=== PATIENT | female | born 1930 | race Caucasian/White ===

== ENCOUNTER 2018-09-20 19:56 | Inpatient (IN) ==
--- NOTE | 2018-09-20 20:43 | Emergency Department Note ---
General Adult HPI - General Chief complaint: Cold/Flu Symptoms Stated complaint: "upset stomach" Time Seen by Provider: 09/20/18 20:07 Source: patient, family, EMS Mode of arrival: EMS Limitations: no limitations - History of Present Illness HPI Narrative: 87-year-old female in ED with family present. Patient was transferred from [facility] via [facility] ambulance due to abdominal pain with nausea since 3 AM. They were unable to draw blood from patient to run further diagnostics, and no CT scanner available. Patient's alert and oriented and upon arrival states she has no more abdominal pain, she is only hungry. Family explains patient has had nausea since 3 AM decreased appetite and concerns on her lower extremity edema. Patient was recently diagnosed with A. fib within the last 2 months and placed on Xarelto. Patient does have a history of COPD, hypothyroidism, hypertension, CHF, chronic kidney disease stage III, inguinal hernia right side. Onset (ago): day(s) (1) Location: abdomen Radiation: non-radiation Consistency: now resolved Treatments Prior to Arrival: other (500 mL lactated Ringer's ODT ondansetron) - Related Data Home Medications Medication Instructions Recorded Confirmed Acetaminophen [Tylenol Extra 500 mg PO Q8HP PRN 09/21/18 09/21/18 Strength] Albuterol Sulfate [Ventolin] 2 puff INH Q4HP PRN 09/21/18 09/21/18 Beclomethasone Dipropionate [Qvar 2 puff INH BID 09/21/18 09/21/18 40] Calcium Carbonate [Tums] 1,000 mg PO BID 09/21/18 09/21/18 Cephalexin [Keflex] 500 mg PO TID 09/21/18 09/21/18 Furosemide [Lasix] 20 mg PO QAM 09/21/18 09/21/18 Levothyroxine [Synthroid] 88 mcg PO QAMAC 09/21/18 09/21/18 Lisinopril [Zestril] 20 mg PO BID 09/21/18 09/21/18 Rivaroxaban [Xarelto] 15 mg PO QHS 09/21/18 09/21/18 Spironolactone [Aldactone] 25 mg PO DAILY@1200 09/21/18 09/21/18 amLODIPine [Norvasc] 5 mg PO HS 09/21/18 09/21/18 Allergies Allergy/AdvReac Type Severity Reaction Status Date / Time codeine Allergy Verified 09/20/18 19:59 Review of Systems All systems ED: reviewed and negative except as stated. Past Medical History - Past Medical History Medical history: Reports: arthritis, atrial fibrillation, CHF, COPD, coronary artery disease, hypertension, hypothyroidism, renal disease (stage III) - Social History smoking status: Never smoker Physical Exam Limitations: no limitations General appearance: alert, in no apparent distress (patient does appear frail with skin tenting) Head: atraumatic, normocephalic, normal inspection Eye: Present: normal appearance, PERRL. Absent: conjunctival injection ENT: normal exam, normal oropharynx, mucous membranes moist, TM's normal bilaterally, normal external ear exam Neck: Present: normal inspection. Absent: tenderness, lymphadenopathy Chest: Present: normal inspection, symmetric chest wall rise. Absent: tenderness Respiratory: Present: normal lung sounds bilaterally. Absent: respiratory distress, rales/crackles, wheezes Cardiovascular: Present: irregular rhythm. Absent: systolic murmur, diastolic murmur Abdominal: Present: soft, distention (slight LRQ/LLQ), normal bowel sounds. Absent: tenderness, guarding, rebound, rigidity Extremities: Present: normal inspection, pedal edema (+1) Back: Present: normal inspection Neurological: Present: alert, oriented X3 Psychiatric: Present: normal affect, normal mood. Absent: depressed, agitated, anxious Skin: Present: warm, dry, intact, normal color. Absent: cyanosis, diaphoresis, erythema Course Vital Signs Temperature 97.3 F 09/20/18 19:59 Pulse Rate 72 09/20/18 19:59 Respiratory Rate 17 09/20/18 19:59 Blood Pressure 156/85 09/20/18 19:59 Pulse Oximetry (%) 97 09/20/18 19:59 Temperature 97.9 F 09/21/18 07:38 Pulse Rate 83 09/21/18 03:10 Respiratory Rate 16 09/21/18 07:38 Blood Pressure 155/68 09/21/18 07:38 Pulse Oximetry (%) 95 09/21/18 07:38 Medical Decision Making - MDM Narrative Medical decision making narrative: Patient's lab work fairly unremarkable WBC 9.4, RBC 3.87, BUN 28, creatinine 1.0. At end of this provider's shift consulted with to continue patient care and on patient history and recent diagnostics along with recently ordered ct for possible bowel obstruction. Notified family of change of providers. - Medical Records Medical records reviewed: Yes I reviewed the patient's medical records. [facility] did EKG and was able to compare to an older recent EKG. WOOD FUEL PELLETIZER advised no changes sinus arrhythmia. Reviewed ED notes along with ambulance notes. - Lab Data Lab results reviewed: Yes I reviewed the patient's lab results. Result diagrams: 09/21/18 07:45 09/21/18 08:01 Lab Results 09/20/18 09/20/18 09/20/18 Range/Units 20:20 20:20 22:25 WBC 9.4 (4.5-11.0) K/mcL RBC 3.87 L (4.00-5.20) M/mcL Hgb 12.9 (12.0-15.0) g/dL Hct 38.3 (36.0-48.0) % MCV 99.0 (80.0-100.0) fL MCH 33.3 (26.0-34.0) pg MCHC 33.7 (31.0-36.0) g/dL RDW 14.9 H (11.5-14.5) % Plt Count 368 (140-440) K/mcL MPV 6.9 L (7.4-10.4) fL Gran % 80.7 H (38.0-78.0) % Lymph % (Auto) 11.9 L (15.5-49.0) % Archer % (Auto) 7.1 (1.0-12.0) % Eos % (Auto) 0.2 (0.0-7.0) % Baso % (Auto) 0.1 (0.0-2.0) % Gran # 7.6 (1.8-8.0) K/mcL Lymph # (Auto) 1.1 L (1.5-4.8) K/mcL Archer # (Auto) 0.7 (0.1-0.9) K/mcL Eos # (Auto) 0 (0.0-0.7) K/mcL Baso # (Auto) 0 (0.0-0.3) K/mcL VBG Lactic Acid 1.7 (0.5-2.0) mmol/L Sodium 133 (133-145) mmol/L Potassium 4.7 (3.3-5.1) mmol/L Chloride 94 L (96-108) mmol/L Carbon Dioxide 25 (22-30) mmol/L Anion Gap 14.0 (8-16) BUN 28 H (8-23) mg/dl Creatinine 1.0 (0.6-1.1) mg/dl GFR Calculation 51 Glucose 140 H (70-105) mg/dL Calcium 10.0 (8.6-10.4) mg/dl Total Bilirubin 0.5 (0.0-1.0) mg/dL AST 23 (0-37) U/l ALT 13 (0-40) U/l Alkaline Phosphatase 48 (39-117) U/L Total Protein 7.6 (5.9-8.4) gm/dL Albumin 4.0 (3.2-5.2) gm/dL Globulin 3.6 (2.2-3.7) gm/dL Albumin/Globulin Ratio 1.1 (1.0-2.3) Amylase 78 (28-100) U/L Lipase 24 (7-60) U/L Procalcitonin (<0.10) ng/mL 09/20/18 Range/Units 22:25 WBC (4.5-11.0) K/mcL RBC (4.00-5.20) M/mcL Hgb (12.0-15.0) g/dL Hct (36.0-48.0) % MCV (80.0-100.0) fL MCH (26.0-34.0) pg MCHC (31.0-36.0) g/dL RDW (11.5-14.5) % Plt Count (140-440) K/mcL MPV (7.4-10.4) fL Gran % (38.0-78.0) % Lymph % (Auto) (15.5-49.0) % Archer % (Auto) (1.0-12.0) % Eos % (Auto) (0.0-7.0) % Baso % (Auto) (0.0-2.0) % Gran # (1.8-8.0) K/mcL Lymph # (Auto) (1.5-4.8) K/mcL Archer # (Auto) (0.1-0.9) K/mcL Eos # (Auto) (0.0-0.7) K/mcL Baso # (Auto) (0.0-0.3) K/mcL VBG Lactic Acid (0.5-2.0) mmol/L Sodium (133-145) mmol/L Potassium (3.3-5.1) mmol/L Chloride (96-108) mmol/L Carbon Dioxide (22-30) mmol/L Anion Gap (8-16) BUN (8-23) mg/dl Creatinine (0.6-1.1) mg/dl GFR Calculation Glucose (70-105) mg/dL Calcium (8.6-10.4) mg/dl Total Bilirubin (0.0-1.0) mg/dL AST (0-37) U/l ALT (0-40) U/l Alkaline Phosphatase (39-117) U/L Total Protein (5.9-8.4) gm/dL Albumin (3.2-5.2) gm/dL Globulin (2.2-3.7) gm/dL Albumin/Globulin Ratio (1.0-2.3) Amylase (28-100) U/L Lipase (7-60) U/L Procalcitonin 0.25 (<0.10) ng/mL - Radiology Data Radiology results reviewed: Yes I reviewed the patient's radiology results. Chest x-ray: 1. cardiomegaly 2. Infiltrate or atelectasis at the right lung base 3.Opacification at the right pulmonary apex likely related to soft tissue and vascular structures. Abdominal x-ray: Multiple loops of mildly dilated small bowel in the lower abdomen with air-fluid levels concerning for partial obstruction, which may be due to fecal impaction/constipation. Disposition Pt seen by WOOD FUEL PELLETIZER/PA only: No (Chin) Clinical Impression: Small bowel obstruction Disposition: Xfer As Inpt ([facility]) Condition: Fair Time of Disposition: 11:20
[2018-09-20 20:55] LABS: Basophils # (Auto) 0 K/mcL (0.0-0.3); Basophils % (Auto) 0.1 % (0.0-2.0); Eosinophils # (Auto) 0 K/mcL (0.0-0.7); Eosinophils % (Auto) 0.2 % (0.0-7.0); Granulocytes % (Auto) 80.7 % (38.0-78.0); Lymphocytes # (Auto) 1.1 K/mcL (1.5-4.8); Lymphocytes % (Auto) 11.9 % (15.5-49.0); Mean Corpuscular HGB Conc 33.7 g/dL (31.0-36.0); Monocytes # (Auto) 0.7 K/mcL (0.1-0.9); Monocytes % (Auto) 7.1 % (1.0-12.0); Platelet Count 368 K/mcL (140-440); RBC 3.87 M/mcL (4.00-5.20); Red Cell Distribution Width 14.9 % (11.5-14.5)
[2018-09-20 21:17] LABS: ALT/SGPT 13 U/l (0-40); Albumin/Globulin Ratio 1.1 (1.0-2.3); Alkaline Phosphatase 48 U/L (39-117); Amylase 78 U/L (28-100); Blood Urea Nitrogen 28 mg/dl (8-23); Lipase 24 U/L (7-60)
[2018-09-20] MEDS ORDERED: LORazepam 2 MG/ML VIAL IV ONE (22:26)
[2018-09-21] MEDS ORDERED: PIPERACILLIN SODIUM/TAZOBACTAM 3.375 GM in DEXTROSE 5% IN WATER 50 ML IV ONE (00:12)
--- NOTE | 2018-09-21 00:15 | Emergency Department Note ---
General Adult HPI - General Chief complaint: Cold/Flu Symptoms Stated complaint: "upset stomach" Time Seen by Provider: 09/20/18 20:07 Source: patient, family, EMS Mode of arrival: EMS Limitations: no limitations - History of Present Illness Location: abdomen Treatments Prior to Arrival: other (500 mL lactated Ringer's ODT ondansetron) - Related Data Allergies Allergy/AdvReac Type Severity Reaction Status Date / Time codeine Allergy Verified 09/20/18 19:59 Past Medical History - Past Medical History Medical history: Reports: arthritis, atrial fibrillation, CHF, COPD, coronary artery disease, hypertension, hypothyroidism, renal disease (stage III) - Social History smoking status: Never smoker Physical Exam Limitations: no limitations General appearance: alert, in no apparent distress (patient does appear frail with skin tenting) Course Vital Signs Temperature 97.3 F 09/20/18 19:59 Pulse Rate 72 09/20/18 19:59 Respiratory Rate 17 09/20/18 19:59 Blood Pressure 156/85 09/20/18 19:59 Pulse Oximetry (%) 97 09/20/18 19:59 Temperature 97.3 F 09/20/18 19:59 Pulse Rate 77 09/21/18 00:04 Respiratory Rate 17 09/20/18 19:59 Blood Pressure 160/128 09/21/18 00:01 Pulse Oximetry (%) 97 09/21/18 00:04 Medical Decision Making - [facility] Narrative Medical decision making narrative: Continuation of Rahel's workupThe WBC is 9400 hemoglobin 12.9 hematocrit of 38.3 lactic acid is 1.7, sodium is 133 and the potassium 4.7 glucose is 140 lipase is 24 patient had right lower quadrant pain which had mostly resolved but palpation she still has some tenderness located in the region. There is no rebound CT of the abdomen does reveal small bowel obstruction possible herniation into the right inguinal canal Dr. Marsh contacted patient to be admitted G-tube and started on Zosyn small bowel obstruction - Lab Data Result diagrams: 09/20/18 20:20 09/20/18 20:20 Lab Results 09/20/18 09/20/18 09/20/18 Range/Units 20:20 20:20 22:25 WBC 9.4 (4.5-11.0) K/mcL RBC 3.87 L (4.00-5.20) M/mcL Hgb 12.9 (12.0-15.0) g/dL Hct 38.3 (36.0-48.0) % MCV 99.0 (80.0-100.0) fL MCH 33.3 (26.0-34.0) pg MCHC 33.7 (31.0-36.0) g/dL RDW 14.9 H (11.5-14.5) % Plt Count 368 (140-440) K/mcL MPV 6.9 L (7.4-10.4) fL Gran % 80.7 H (38.0-78.0) % Lymph % (Auto) 11.9 L (15.5-49.0) % Isabela % (Auto) 7.1 (1.0-12.0) % Eos % (Auto) 0.2 (0.0-7.0) % Baso % (Auto) 0.1 (0.0-2.0) % Gran # 7.6 (1.8-8.0) K/mcL Lymph # (Auto) 1.1 L (1.5-4.8) K/mcL Isabela # (Auto) 0.7 (0.1-0.9) K/mcL Eos # (Auto) 0 (0.0-0.7) K/mcL Baso # (Auto) 0 (0.0-0.3) K/mcL VBG Lactic Acid 1.7 (0.5-2.0) mmol/L Sodium 133 (133-145) mmol/L Potassium 4.7 (3.3-5.1) mmol/L Chloride 94 L (96-108) mmol/L Carbon Dioxide 25 (22-30) mmol/L Anion Gap 14.0 (8-16) BUN 28 H (8-23) mg/dl Creatinine 1.0 (0.6-1.1) mg/dl GFR Calculation 51 Glucose 140 H (70-105) mg/dL Calcium 10.0 (8.6-10.4) mg/dl Total Bilirubin 0.5 (0.0-1.0) mg/dL AST 23 (0-37) U/l ALT 13 (0-40) U/l Alkaline Phosphatase 48 (39-117) U/L Total Protein 7.6 (5.9-8.4) gm/dL Albumin 4.0 (3.2-5.2) gm/dL Globulin 3.6 (2.2-3.7) gm/dL Albumin/Globulin Ratio 1.1 (1.0-2.3) Amylase 78 (28-100) U/L Lipase 24 (7-60) U/L Procalcitonin (<0.10) ng/mL 09/20/18 Range/Units 22:25 WBC (4.5-11.0) K/mcL RBC (4.00-5.20) M/mcL Hgb (12.0-15.0) g/dL Hct (36.0-48.0) % MCV (80.0-100.0) fL MCH (26.0-34.0) pg MCHC (31.0-36.0) g/dL RDW (11.5-14.5) % Plt Count (140-440) K/mcL MPV (7.4-10.4) fL Gran % (38.0-78.0) % Lymph % (Auto) (15.5-49.0) % Isabela % (Auto) (1.0-12.0) % Eos % (Auto) (0.0-7.0) % Baso % (Auto) (0.0-2.0) % Gran # (1.8-8.0) K/mcL Lymph # (Auto) (1.5-4.8) K/mcL Isabela # (Auto) (0.1-0.9) K/mcL Eos # (Auto) (0.0-0.7) K/mcL Baso # (Auto) (0.0-0.3) K/mcL VBG Lactic Acid (0.5-2.0) mmol/L Sodium (133-145) mmol/L Potassium (3.3-5.1) mmol/L Chloride (96-108) mmol/L Carbon Dioxide (22-30) mmol/L Anion Gap (8-16) BUN (8-23) mg/dl Creatinine (0.6-1.1) mg/dl GFR Calculation Glucose (70-105) mg/dL Calcium (8.6-10.4) mg/dl Total Bilirubin (0.0-1.0) mg/dL AST (0-37) U/l ALT (0-40) U/l Alkaline Phosphatase (39-117) U/L Total Protein (5.9-8.4) gm/dL Albumin (3.2-5.2) gm/dL Globulin (2.2-3.7) gm/dL Albumin/Globulin Ratio (1.0-2.3) Amylase (28-100) U/L Lipase (7-60) U/L Procalcitonin 0.25 (<0.10) ng/mL Disposition Pt seen by MULTIPLE EFFECT EVAPORATOR OPERATOR/PA only: No Clinical Impression: Small bowel obstruction Disposition: Xfer As Inpt ([facility]) Condition: Fair Instructions: Bowel Obstruction (ED) Referrals: Williams Clark MD [Primary Care Provider] - Time of Disposition: 00:16
[2018-09-21] MEDS ORDERED: ONDANSETRON 4 MG/2 ML VIAL IV PRN ×3 (00:16→14:33)
[2018-09-21] MEDS ORDERED: HYDROmorphone 2 MG/ML VIAL IV PRN (00:21)
[2018-09-21] MEDS: 0.9 % SODIUM CHLORIDE 1,000 ML IV SCH ×3 (01:20→17:09)
--- NOTE | 2018-09-21 04:17 | XRay Report ---
CLINICAL INFORMATION: Pain COMPARISON: 04/06/2017 08/05/2018 FINDINGS: The heart is moderately enlarged. Mediastinum is unremarkable. Pulmonary vessels are mildly distended and there is mild interstitial edema throughout both lungs. Mild airspace disease in the right apex and base may represent superimposed infiltrate or atypically distributed edema. Small right pleural effusion noted IMPRESSION: 1. Moderate CHF 2. Mild airspace disease in the right apex and base are new. Atypically distributed edema or, less likely, infection Interpreted and Authenticated by: Donta Alfaro 09/21/18
--- NOTE | 2018-09-21 04:20 | XRay Report ---
CLINICAL INFORMATION: NG tube placement COMPARISON: 09/20/2018 FINDINGS: NG tube overlies the gastric fundus. Stomach and multiple loops of small bowel in the upper abdomen are mildly dilated. The distal small bowel and colon are decompressed. No free air, soft tissue mass or organomegaly IMPRESSION: NG tube overlying the gastric fundus. Suggest: Advancing the tube nine cm Partial small bowel obstruction - mid jejunum Interpreted and Authenticated by: Donta Alfaro 09/21/18
--- NOTE | 2018-09-21 04:24 | XRay Report ---
CLINICAL INFORMATION: abd pain with nausea COMPARISON: None. FINDINGS: The stomach and multiple loops of proximal small bowel are mildly dilated and demonstrate air-fluid levels on the upright film. The mid/distal small bowel and colon are relatively decompressed. No soft tissue mass, organomegaly or pathologic calcification. IMPRESSION: Partial small bowel obstruction - mid jejunum Severe left and moderate right-sided degeneration Interpreted and Authenticated by: Donta Alfaro 09/21/18
--- NOTE | 2018-09-21 05:34 | Cat Scan Report ---
CLINICAL INFORMATION: Abdominal pain and distention COMPARISON: None. TECHNIQUE: Following enteric contrast, 80 cc of Isovue-300 were injected intravenously, and 60 seconds later, 0.625 mm helical slices were obtained from the mid heart through the subtrochanteric regions. Following reconstruction, 2.5 mm sagittal, coronal and axial reformatted images were processed and reviewed at bone, lung and soft tissue windows. Five minutes later, 0.625 mm helical slices were obtained from the mid heart through the kidneys and viewed at soft tissue windows.The exam was performed using radiation dose optimization techniques including, but not limited to, automated exposure control, adjustment of the mA and/or kV according to patient size and use of iterative reconstruction technique. FINDINGS: Moderate patchy ground glass airspace disease seen in the visualized right lower lobe with minimal, yet similar changes in the left lower lobe. No effusions. The visualized heart is moderately enlarged and there is heavy mitral annular calcification. Mild calcification of the aortic valve is also noted. Images through the abdomen show mild periportal edema in the liver likely related to CHF. No focal hepatic lesions. The gallbladder and bile ducts are normal CBD is 5 mm.Both kidneys, adrenal glands, spleen and pancreas are normal in size configuration and attenuation without focal lesion. The abdominal aorta diameter is upper limits of normal: 2.7 cm. Extraordinarily heavy fibrofatty and calcific atherosclerotic plaque present in the infrarenal abdominal aorta. 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 Both common iliac arteries are also occluded with collateral reconstitution of the distal right common iliac and the left external iliac artery by collaterals. The distal iliac and common femoral arteries are widely patent. Images through the pelvis show the urinary bladder is unremarkable. Hysterectomy/oophorectomy changes noted. Moderate free fluid is seen within both the abdomen and pelvis. An incarcerated right inguinal hernia consisting of the distal ileum is appreciated. As result, the stomach and proximal small bowel are moderately dilated with moderate decompression of the terminal ileum and colon. Moderate degenerative changes noted in the lumbar spine. No focal osseous lesions. IMPRESSION: 1. Incarcerated right inguinal hernia consisting of a short distal ileal segment. This has resulted in high-grade small bowel obstruction with marked dilatation of the stomach and proximal small bowel with decompression of the terminal ileum and colon. Moderate ascites within the abdomen and pelvis is compatible with third spacing. No evidence of perforation. 2. 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 The distal right common iliac and left external iliac arteries are reconstituted by collaterals. 3. Mild portal triad edema likely related to CHF 4. Moderate groundglass infiltrate in the right lower lobe and smaller left lower lobe infiltrate. Edema from CHF versus infection or aspiration. Interpreted and Authenticated by: Donta Alfaro 09/21/18
[2018-09-21 09:08] LABS: Basophils # (Auto) 0 K/mcL (0.0-0.3); Basophils % (Auto) 0.2 % (0.0-2.0); Eosinophils # (Auto) 0 K/mcL (0.0-0.7); Eosinophils % (Auto) 0.3 % (0.0-7.0); Granulocytes % (Auto) 77.9 % (38.0-78.0); Lymphocytes % (Auto) 12.4 % (15.5-49.0); Mean Cell Volume 99.9 fL (80.0-100.0); Mean Corpuscular HGB Conc 33.1 g/dL (31.0-36.0); Monocytes # (Auto) 0.8 K/mcL (0.1-0.9); Monocytes % (Auto) 9.2 % (1.0-12.0); Platelet Count 370 K/mcL (140-440); RBC 3.82 M/mcL (4.00-5.20); Red Cell Distribution Width 15.1 % (11.5-14.5)
[2018-09-21 09:29] LABS: ALT/SGPT 14 U/l (0-40); Albumin 3.9 gm/dL (3.2-5.2); Albumin/Globulin Ratio 1.2 (1.0-2.3); Alkaline Phosphatase 46 U/L (39-117); Bilirubin,Direct < 0.2 mg/dL (0.0-0.3); Blood Urea Nitrogen 28 mg/dl (8-23); Gamma Glutamyl Transpeptidase 18 U/L (5-36)
[2018-09-21] MEDS ORDERED: SCOPOLAMINE 1 PATCH PATCH TOPICAL PRN (09:58)
--- NOTE | 2018-09-21 10:29 | General Surg History&Physical ---
History of Present Illness Patient information: Note initiated : 09/21/18 at 10:26 am Service Date, if different from initiated Date: [] Patient: Kathy Galvan 87 y/o F admitted on 09/21/18 for "upset stomach". Chief Complaint: [abdominal pain and nausea] HPI: Ms. Galvan is a 87 year old F transferred from Hospital in [facility] for evaluation of abdominal distention with complaint of abdominal pain and nausea. Patient HAD ONSET about 3 AM on the morning of admission. When seen in the emergency room here she was noted to have a tightly incarcerated inguinal hernia. CT of the abdomen shows a tightly incarcerated hernia and the femoral canal with a small bowel obstruction. Patient is admitted for treatment. She will have her urgent OPERATIVE REPAIR later this morning. Review of Systems - Constitutional fatigue, malaise, weakness, weight loss - EENT Nose, mouth and throat: dizziness, vertigo - Cardiovascular pedal edema, rapid heart rate, no chest pain with activity, no orthopnea, no syncope - Respiratory cough, no dyspnea on exertion, no wheezing, no chest congestion - Gastrointestinal abdominal pain, constipation, nausea, no vomiting - Genitourinary Genitourinary: difficulty urinating, flank pain, urinary frequency, urinary incontinence, urinary urgency - Musculoskeletal abnormal gait, arthralgias, back pain, deformity, joint swelling, loss of height, neck pain, stiffness - Integumentary changing lesions, no new lesions, no non-healing lesions, no pruritus, no rash - Neurological abnormal hearing, abnormal speech, behavioral changes, confusion, memory loss, restless legs, vertigo, weakness - Psychiatric anxiety, confusion, irritability, mood swings, no depression - Endocrine fatigue, palpitations, no polydipsia, no polyphagia, no polyuria - Hematologic/Lymphatic other (on chronic anticoagulant therapy), no easy bleeding, no easy bruising, no lymphadenopathy - Allergic/Immunologic no tongue swelling, no throat swelling, no uticaria, no wheezing, no lip swelling Past History Past medical history: Chronic atrial fibrillation On chronic anticoagulant therapy Chronic obstructive lung disease Hypothyroidism I hypertension History of congestive heart failure chronic kidney disease stage III Coronary artery disease Past surgical history: None given Past family history: None known Past social history: never smokeR Medications and Allergies Home Medications Medication Instructions Recorded Confirmed Type Acetaminophen [Tylenol Extra 500 mg PO Q8HP PRN 09/21/18 09/21/18 History Strength] Albuterol Sulfate [Ventolin] 2 puff INH Q4HP PRN 09/21/18 09/21/18 History Beclomethasone Dipropionate [Qvar 2 puff INH BID 09/21/18 09/21/18 History 40] Calcium Carbonate [Tums] 1,000 mg PO BID 09/21/18 09/21/18 History Cephalexin [Keflex] 500 mg PO TID 09/21/18 09/21/18 History Furosemide [Lasix] 20 mg PO QAM 09/21/18 09/21/18 History Levothyroxine [Synthroid] 88 mcg PO QAMAC 09/21/18 09/21/18 History Lisinopril [Zestril] 20 mg PO BID 09/21/18 09/21/18 History Rivaroxaban [Xarelto] 15 mg PO QHS 09/21/18 09/21/18 History Spironolactone [Aldactone] 25 mg PO DAILY@1200 09/21/18 09/21/18 History amLODIPine [Norvasc] 5 mg PO HS 09/21/18 09/21/18 History Allergies Allergy/AdvReac Type Severity Reaction Status Date / Time codeine Allergy Verified 09/20/18 19:59 Exam Temp Pulse Resp BP Pulse Ox 97.9 F 83 16 155/68 95 09/21/18 07:38 09/21/18 03:10 09/21/18 07:38 09/21/18 07:38 09/21/18 07:38 - General physical appearance well developed, well nourished, no distress, cachectic, chronically ill - Eyes PERRL, normal ocular movement - ENT normal pinna, normal nares, normal mucosa, no hearing loss, no congestion - Head Head exam IM: Present: atraumatic, normal inspection, normocephalic - Neck no masses, no bruits, trachea midline, no lymphadenopathy, no venous distension - Cardiovascular Cardiovascular exam IM: Present: normal rate and rhythm, JVD, +S1, +S2. Absent: irregular rhythm, tachycardia - Respiratory normal expansion, normal respiratory effort, clear to auscultation - Abdomen Abdomen: Present: soft, non tender, bowel sounds, distended (abdomen is distended and diffusely tender; hyperactive bowel sounds; no palpable mass) Hernia: Present: none, femoral ( incarcerated femoral hernia right) - Genitourinary Present: normal external genitalia - Integumentary Present: no rash, no growths, no abnormal pigmentation - Neurologic Present: normal coordination, normal sensation - Musculoskeletal Present: other ( unsteady gait and posture due to weakness in) - Psychiatric Present: oriented to person, oriented to place (Poor memory), other Assessment and Plan (1) Irreducible right femoral hernia Scheduled for femoral hernia repair later today Status: Acute (2) Chronic atrial fibrillation Hold anticoagulants in the perioperative period Status: Acute (3) Chronic obstructive lung disease Status: Acute (4) Chronic kidney disease (CKD) Status: Acute (5) History of coronary artery disease Status: Acute (6) Small bowel obstruction Status: Acute
[2018-09-21] MEDS ORDERED: BACITRACIN 50,000 UNIT VIAL IR ONE (12:30)
[2018-09-21] MEDS ORDERED: IPRATROPIUM/ALBUTEROL 3 ML AMPUL.NEB NEB PRN (13:06)
[2018-09-21] MEDS ORDERED: MEPERIDINE 25 MG/ML SYRINGE IV PRN (13:06)
[2018-09-21] MEDS ORDERED: fentaNYL 100 MCG/2 ML VIAL IV PRN (13:06)
--- NOTE | 2018-09-21 13:12 | Brief Operative Note ---
Date of procedure: 09/21/18 Pre-op diagnosis: left femoral hernia Procedure: INCARCERATED LEFT FEMORAL HERNIA WITH SMALL BOWEL OBSTRUCTION Grafts/Implants: Yes (SURGIMESH) Anesthesia: GLMA Findings: TIGHTLY INCARCERATED SMALL BOWEL AND OMENTUM IN LEFT FEMORAL HERNIA SAC WITH VIABLE BOWEL Complications: none Surgeon: Donna Marsh Estimated blood loss (cc): 10 Specimens Removed/Pathology: none sent Condition: stable Disposition: PACU
[2018-09-21] MEDS ORDERED: LACTATED RINGERS 1,000 ML IV SCH ×2 (13:15→14:33)
[2018-09-21] MEDS ORDERED: METOPROLOL TARTRATE 5 MG/5 ML VIAL IV ONE ×2 (13:32→13:38)
[2018-09-21] MEDS ORDERED: ALBUTEROL SULFATE 1 PUFF INHALER INH PRN (14:33)
[2018-09-21] MEDS: HYDROmorphone 2 MG/ML VIAL IV PRN ×2 (15:06→20:43)
[2018-09-21] MEDS: cefOXitin 2 GM VIAL IV SCH ×2 (16:49→22:30)
[2018-09-21 18:05] LABS: Appearance,Urine CLEAR; Bacteria,Urine 0 /hpf (0); Bilirubin,Urine NEG (NEG); Color,Urine YELLOW; Glucose,Urine (UA) NEGATIVE (NEG); Leukocyte Esterase,Urine NEG /uL (NEG); Protein,Urine NEG (NEG); Specific Gravity,Urine 1.031 (1.000-1.035); Urine Blood 0.03 mg/dL (<0.03); Urine Hyaline Cast 1 /lpf (0-2); Urine RBC 1 /hpf (0-1); Urine Squamous Epithelial Cell < 1 /hpf (0-4); Urine WBC 1 /hpf (0-4); Urobilinogen,Urine NEG (NEG)
[2018-09-21] MEDS: RIVAROXABAN 15 MG TABLET PO SCH (20:21)
[2018-09-21] MEDS: ACETAMINOPHEN 500 MG TABLET PO PRN (20:21)
[2018-09-21] MEDS: amLODIPine 5 MG TABLET PO SCH (20:21)
[2018-09-21] MEDS: BECLOMETHASONE DIPROPIONATE INH SCH (20:30)
[2018-09-22] MEDS: 0.9 % SODIUM CHLORIDE 1,000 ML IV SCH ×4 (00:56→20:25)
[2018-09-22] MEDS: HYDROmorphone 2 MG/ML VIAL IV PRN ×6 (01:49→22:17)
[2018-09-22] MEDS: ACETAMINOPHEN 500 MG TABLET PO PRN (05:00)
[2018-09-22] MEDS: cefOXitin 2 GM VIAL IV SCH ×4 (05:01→22:18)
[2018-09-22] MEDS: LEVOTHYROXINE 88 MCG TABLET PO SCH (07:08)
--- NOTE | 2018-09-22 08:47 | XRay Report ---
CLINICAL INFORMATION: Postop reduction of incarcerated right inguinal hernia causing distal small bowel obstruction COMPARISON: 2018 FINDINGS: NG tube now. Stomach is unremarkable. There is moderate gas and small large bowel compatible with mild postoperative ileus. No evidence of bowel obstruction. No free air, fluid or soft tissue mass. IMPRESSION: Mild postoperative ileus - as expected. No evidence of bowel obstruction Interpreted and Authenticated by: Donta Alfaro 09/22/18
[2018-09-22 09:53] LABS: ALT/SGPT 17 U/l (0-40); Albumin 3.5 gm/dL (3.2-5.2); Albumin/Globulin Ratio 1.1 (1.0-2.3); Alkaline Phosphatase 42 U/L (39-117); Bilirubin,Direct < 0.2 mg/dL (0.0-0.3); Blood Urea Nitrogen 23 mg/dl (8-23); Gamma Glutamyl Transpeptidase 18 U/L (5-36); Uric Acid 4.1 mg/dL (2.5-8.0)
[2018-09-22 10:00] LABS: Basophils # (Auto) 0 K/mcL (0.0-0.3); Basophils % (Auto) 0.1 % (0.0-2.0); Eosinophils # (Auto) 0 K/mcL (0.0-0.7); Eosinophils % (Auto) 0.1 % (0.0-7.0); Lymphocytes # (Auto) 0.9 K/mcL (1.5-4.8); Lymphocytes % (Auto) 8.5 % (15.5-49.0); Mean Cell Volume 99.9 fL (80.0-100.0); Mean Corpuscular HGB Conc 33.2 g/dL (31.0-36.0); Monocytes # (Auto) 0.8 K/mcL (0.1-0.9); Monocytes % (Auto) 7.3 % (1.0-12.0); Platelet Count 312 K/mcL (140-440); RBC 3.32 M/mcL (4.00-5.20); Red Cell Distribution Width 15.1 % (11.5-14.5)
[2018-09-22] MEDS: BECLOMETHASONE DIPROPIONATE INH SCH ×2 (12:00→22:46)
--- NOTE | 2018-09-22 15:13 | General Surgery Progress Note ---
Subjective Patient reports: feels better, pain is less, no flatus, no bowel movement, afebrile Narrative: Note initiated : 09/22/18 at 3:11 pm Service Date, if different from initiated Date: [] Patient: Kathy Galvan 87 y/o F admitted on 09/21/18 for "upset stomach". Chief Complaint: [Patient has done well except for difficulty voiding. She has urinary volume retention of up to 400 cc and a Sagastume catheter has been inserted from the time being. She has no other difficulty.] Objective Temp Pulse Resp BP Pulse Ox 98.4 F 86 20 108/54 92 09/22/18 12:00 09/22/18 07:38 09/22/18 12:00 09/22/18 12:00 09/22/18 12:00 - Additional Data Intake & Output - Last 24 hours: Intake & Output 09/20/18 09/21/18 09/22/18 09/23/18 05:59 05:59 05:59 05:59 Intake Total 2700 / 2700 1000 / 1000 Output Total 200 / 200 1775 / 1775 Balance -178 / -178 925 / 925 1000 / 1000 Weight 86 lb 8 oz 99 lb 99 lb - General physical appearance well developed, well nourished, no distress - Eyes PERRL, normal ocular movement - ENT normal pinna, normal nares, normal mucosa, no hearing loss, no congestion - Neck no masses, no bruits, trachea midline, no lymphadenopathy, no venous distension - Respiratory normal expansion, normal respiratory effort, clear to auscultation - Cardiovascular Cardiovascular exam: Present: irregular rhythm, +S1, +S2, tachycardia. Absent: JVD - Abdomen non tender, bowel sounds (present), surgical scars ( operative site right groin is UNremarkable), masses (none) - Labs 09/22/18 07:29 09/22/18 07:29 Diabetes panel 09/22/18 Range/Units 07:29 Sodium 133 (133-145) mmol/L Potassium 3.9 (3.3-5.1) mmol/L Chloride 97 (96-108) mmol/L Carbon Dioxide 22 (22-30) mmol/L BUN 23 (8-23) mg/dl Creatinine 0.9 (0.6-1.1) mg/dl Glucose 100 (70-105) mg/dL Calcium 8.9 (8.6-10.4) mg/dl AST 41 H (0-37) U/l ALT 17 (0-40) U/l Alkaline Phosphatase 42 (39-117) U/L Total Protein 6.7 (5.9-8.4) gm/dL Albumin 3.5 (3.2-5.2) gm/dL Triglycerides 85 (<150) mg/dl Calcium panel 09/22/18 Range/Units 07:29 Calcium 8.9 (8.6-10.4) mg/dl Phosphorus 3.2 (2.7-4.5) mg/dL Albumin 3.5 (3.2-5.2) gm/dL Pituitary panel 09/22/18 Range/Units 07:29 Sodium 133 (133-145) mmol/L Potassium 3.9 (3.3-5.1) mmol/L Chloride 97 (96-108) mmol/L Carbon Dioxide 22 (22-30) mmol/L BUN 23 (8-23) mg/dl Creatinine 0.9 (0.6-1.1) mg/dl Glucose 100 (70-105) mg/dL Calcium 8.9 (8.6-10.4) mg/dl Adrenal panel 09/22/18 Range/Units 07:29 Sodium 133 (133-145) mmol/L Potassium 3.9 (3.3-5.1) mmol/L Chloride 97 (96-108) mmol/L Carbon Dioxide 22 (22-30) mmol/L BUN 23 (8-23) mg/dl Creatinine 0.9 (0.6-1.1) mg/dl Glucose 100 (70-105) mg/dL Calcium 8.9 (8.6-10.4) mg/dl Total Bilirubin 0.7 (0.0-1.0) mg/dL AST 41 H (0-37) U/l ALT 17 (0-40) U/l Alkaline Phosphatase 42 (39-117) U/L Total Protein 6.7 (5.9-8.4) gm/dL Albumin 3.5 (3.2-5.2) gm/dL Assessment and Plan (1) Irreducible right femoral hernia Status: Resolved Current Visit: Yes (2) Chronic atrial fibrillation Status: Chronic Current Visit: Yes (3) Chronic obstructive lung disease Status: Chronic Current Visit: Yes (4) Chronic kidney disease (CKD) Status: Acute Current Visit: Yes (5) History of coronary artery disease Status: Acute Current Visit: Yes (6) Small bowel obstruction Status: Resolved Current Visit: Yes - Time Spent With Patient Total time spent is greater than 50% in coordination of care (as documented) at patient's floor/unit and/or counseling patient:
[2018-09-22] MEDS: METOCLOPRAMIDE 10 MG/2 ML VIAL IV SCH (17:08)
[2018-09-22] MEDS: RIVAROXABAN 15 MG TABLET PO SCH (20:54)
[2018-09-22] MEDS: amLODIPine 5 MG TABLET PO SCH (20:54)
[2018-09-23] MEDS: METOCLOPRAMIDE 10 MG/2 ML VIAL IV SCH ×5 (00:14→23:25)
[2018-09-23] MEDS: ACETAMINOPHEN 500 MG TABLET PO PRN ×2 (01:44→10:40)
[2018-09-23] MEDS: 0.9 % SODIUM CHLORIDE 1,000 ML IV SCH ×5 (02:42→23:26)
[2018-09-23] MEDS: cefOXitin 2 GM VIAL IV SCH ×3 (05:22→22:29)
[2018-09-23] MEDS: HYDROmorphone 2 MG/ML VIAL IV PRN ×4 (06:36→20:37)
[2018-09-23] MEDS ORDERED: 0.9 % SODIUM CHLORIDE 250 ML IV SCH (06:45)
[2018-09-23] MEDS: BECLOMETHASONE DIPROPIONATE INH SCH ×2 (07:36→20:32)
[2018-09-23 07:54] LABS: Basophils # (Auto) 0 K/mcL (0.0-0.3); Basophils % (Auto) 0.1 % (0.0-2.0); Eosinophils # (Auto) 0 K/mcL (0.0-0.7); Eosinophils % (Auto) 0.1 % (0.0-7.0); Granulocytes % (Auto) 82.7 % (38.0-78.0); Lymphocytes % (Auto) 8.9 % (15.5-49.0); Mean Cell Volume 100.4 fL (80.0-100.0); Mean Corpuscular HGB Conc 33.2 g/dL (31.0-36.0); Monocytes # (Auto) 0.9 K/mcL (0.1-0.9); Monocytes % (Auto) 8.2 % (1.0-12.0); Platelet Count 310 K/mcL (140-440); RBC 3.14 M/mcL (4.00-5.20); Red Cell Distribution Width 14.8 % (11.5-14.5)
[2018-09-23 08:31] LABS: ALT/SGPT 21 U/l (0-40); Albumin/Globulin Ratio 0.9 (1.0-2.3); Alkaline Phosphatase 46 U/L (39-117); Bilirubin,Direct < 0.2 mg/dL (0.0-0.3); Blood Urea Nitrogen 26 mg/dl (8-23); Gamma Glutamyl Transpeptidase 17 U/L (5-36)
[2018-09-23] MEDS: LEVOTHYROXINE 88 MCG TABLET PO SCH (09:49)
--- NOTE | 2018-09-23 13:59 | General Surgery Progress Note ---
Subjective Patient reports: still having pain, flatus, no bowel movement, afebrile Narrative: Note initiated : 09/23/18 at 1:57 pm Service Date, if different from initiated Date: [] Patient: Kathy Galvan 87 y/o F admitted on 09/21/18 for "upset stomach". Chief Complaint: [patient states that she has more arthritic pain and back pain. She has moderate pain in her operative site and right groin. She she has had some bleeding related to his multiple therapy and this was discontinued earlier today. Her hemoglobin is relatively stable. Recent hemoglobin is pending] Objective Temp Pulse Resp BP Pulse Ox 98.9 F 94 H 20 123/58 95 09/23/18 12:00 09/23/18 06:51 09/23/18 12:00 09/23/18 12:00 09/23/18 12:00 - Additional Data Intake & Output - Last 24 hours: Intake & Output 09/21/18 09/22/18 09/23/18 09/24/18 05:59 05:59 05:59 05:59 Intake Total 22 / 22 2700 / 2700 2135 / 2135 1000 / 1000 Output Total 200 / 200 1775 / 1775 300 / 300 Balance -178 / -178 925 / 925 1835 / 1835 1000 / 1000 Weight 86 lb 8 oz 99 lb 101 lb - General physical appearance well developed, well nourished, no distress, moderate pain, chronically ill - Eyes PERRL, normal ocular movement - ENT normal pinna, normal nares, normal mucosa, no congestion, decreased hearing - Neck no masses, no bruits, trachea midline, no lymphadenopathy, no venous distension - Respiratory normal expansion, normal respiratory effort, clear to auscultation - Cardiovascular Cardiovascular exam: Present: irregular rhythm, +S1, +S2, tachycardia. Absent: JVD - Abdomen tender (tender abdomen with mild distention; active bowel sounds; ecchymosis a round the operative site right groin) - Integumentary no rash, no growths, no abnormal pigmentation - Neurologic normal coordination, normal sensation - Musculoskeletal other ( unsteady gait and stance) - Psychiatric oriented to person, speech is normal, memory intact - Labs 09/23/18 05:59 09/23/18 05:59 Diabetes panel 09/23/18 Range/Units 05:59 Sodium 134 (133-145) mmol/L Potassium 3.8 (3.3-5.1) mmol/L Chloride 99 (96-108) mmol/L Carbon Dioxide 17 L (22-30) mmol/L BUN 26 H (8-23) mg/dl Creatinine 0.9 (0.6-1.1) mg/dl Glucose 88 (70-105) mg/dL Calcium 9.1 (8.6-10.4) mg/dl AST 71 H (0-37) U/l ALT 21 (0-40) U/l Alkaline Phosphatase 46 (39-117) U/L Total Protein 6.3 (5.9-8.4) gm/dL Albumin 3.0 L (3.2-5.2) gm/dL Triglycerides 92 (<150) mg/dl Calcium panel 09/23/18 Range/Units 05:59 Calcium 9.1 (8.6-10.4) mg/dl Phosphorus 3.0 (2.7-4.5) mg/dL Albumin 3.0 L (3.2-5.2) gm/dL Pituitary panel 09/23/18 Range/Units 05:59 Sodium 134 (133-145) mmol/L Potassium 3.8 (3.3-5.1) mmol/L Chloride 99 (96-108) mmol/L Carbon Dioxide 17 L (22-30) mmol/L BUN 26 H (8-23) mg/dl Creatinine 0.9 (0.6-1.1) mg/dl Glucose 88 (70-105) mg/dL Calcium 9.1 (8.6-10.4) mg/dl Adrenal panel 09/23/18 Range/Units 05:59 Sodium 134 (133-145) mmol/L Potassium 3.8 (3.3-5.1) mmol/L Chloride 99 (96-108) mmol/L Carbon Dioxide 17 L (22-30) mmol/L BUN 26 H (8-23) mg/dl Creatinine 0.9 (0.6-1.1) mg/dl Glucose 88 (70-105) mg/dL Calcium 9.1 (8.6-10.4) mg/dl Total Bilirubin 0.6 (0.0-1.0) mg/dL AST 71 H (0-37) U/l ALT 21 (0-40) U/l Alkaline Phosphatase 46 (39-117) U/L Total Protein 6.3 (5.9-8.4) gm/dL Albumin 3.0 L (3.2-5.2) gm/dL Assessment and Plan (1) Irreducible right femoral hernia Status: Resolved Assessment and plan: Patient is stable except for postoperative bleeding related to anticoagulant therapy Current Visit: Yes (2) Chronic atrial fibrillation Status: Chronic Current Visit: Yes (3) Chronic obstructive lung disease Status: Chronic Current Visit: Yes (4) Chronic kidney disease (CKD) Status: Acute Current Visit: Yes (5) History of coronary artery disease Status: Acute Current Visit: Yes (6) Small bowel obstruction Status: Resolved Current Visit: Yes - Time Spent With Patient Total time spent is greater than 50% in coordination of care (as documented) at patient's floor/unit and/or counseling patient:
[2018-09-23] MEDS ORDERED: ACETAMINOPHEN 1,000 MG/100 ML BOTTLE IV ONE ×2 (14:42→18:58)
[2018-09-23] MEDS: ACETAMINOPHEN IV SCH ×3 (14:47→20:32)
[2018-09-23] MEDS: amLODIPine 5 MG TABLET PO SCH (20:30)
[2018-09-24] MEDS: HYDROmorphone 2 MG/ML VIAL IV PRN ×3 (00:26→14:23)
[2018-09-24] MEDS ORDERED: ACETAMINOPHEN 1,000 MG/100 ML BOTTLE IV ONE ×2 (02:15→08:35)
[2018-09-24] MEDS: ACETAMINOPHEN IV SCH ×2 (02:33→08:47)
[2018-09-24] MEDS: METOCLOPRAMIDE 10 MG/2 ML VIAL IV SCH ×3 (06:00→17:23)
[2018-09-24] MEDS: cefOXitin 2 GM VIAL IV SCH ×3 (06:01→21:48)
[2018-09-24 06:24] LABS: Basophils # (Auto) 0 K/mcL (0.0-0.3); Basophils % (Auto) 0.3 % (0.0-2.0); Eosinophils # (Auto) 0.1 K/mcL (0.0-0.7); Granulocytes % (Auto) 77.6 % (38.0-78.0); Lymphocytes # (Auto) 0.9 K/mcL (1.5-4.8); Lymphocytes % (Auto) 12.1 % (15.5-49.0); Mean Cell Volume 100.7 fL (80.0-100.0); Mean Corpuscular HGB Conc 33.6 g/dL (31.0-36.0); Monocytes # (Auto) 0.7 K/mcL (0.1-0.9); Platelet Count 258 K/mcL (140-440); RBC 2.61 M/mcL (4.00-5.20); Red Cell Distribution Width 14.2 % (11.5-14.5)
[2018-09-24] MEDS: LEVOTHYROXINE 88 MCG TABLET PO SCH (06:40)
[2018-09-24 06:52] LABS: ALT/SGPT 26 U/l (0-40); Albumin 2.8 gm/dL (3.2-5.2); Albumin/Globulin Ratio 0.9 (1.0-2.3); Alkaline Phosphatase 42 U/L (39-117); Bilirubin,Direct < 0.2 mg/dL (0.0-0.3); Blood Urea Nitrogen 23 mg/dl (8-23); Gamma Glutamyl Transpeptidase 14 U/L (5-36); Uric Acid 4.8 mg/dL (2.5-8.0)
[2018-09-24] MEDS: 0.9 % SODIUM CHLORIDE 1,000 ML IV SCH ×2 (10:43→14:16)
[2018-09-24] MEDS: BECLOMETHASONE DIPROPIONATE INH SCH ×2 (10:46→21:49)
[2018-09-24] MEDS ORDERED: ROPIVACAINE HCL/PF 20 ML VIAL IJ ONE (12:33)
[2018-09-24] MEDS ORDERED: KETAMINE 100 MG/ML ML IV ONE (12:33)
[2018-09-24] MEDS ORDERED: GLYCOPYRROLATE 0.2 MG/ML VIAL IV ONE (12:33)
[2018-09-24] MEDS ORDERED: PROPOFOL 200 MG/20 ML VIAL IV ONE (12:33)
[2018-09-24] MEDS ORDERED: LIDOCAINE HCL/PF 100 MG/5 ML SYRINGE IV ONE (12:33)
[2018-09-24] MEDS ORDERED: MIDAZOLAM 2 MG/2 ML VIAL IV ONE (12:33)
[2018-09-24] MEDS ORDERED: ONDANSETRON 4 MG/2 ML VIAL IV ONE (12:33)
[2018-09-24] MEDS ORDERED: fentaNYL 100 MCG/2 ML VIAL IV ONE (12:33)
[2018-09-24] MEDS ORDERED: PHENYLEPHRINE 10 MG/ML VIAL IV ONE (12:33)
[2018-09-24] MEDS ORDERED: ROCURONIUM 10 MG/ML ML IV ONE (12:33)
--- NOTE | 2018-09-24 14:52 | General Surgery Progress Note ---
Subjective Patient reports: feels better, pain is less, tolerating liquids well, flatus, bowel movement, afebrile Narrative: Note initiated : 09/24/18 at 2:50 pm Service Date, if different from initiated Date: [] Patient: Kathy Galvan 87 y/o F admitted on 09/21/18 for "upset stomach". Chief Complaint: [patient continues to improve. She has not had any significant bleeding from her operative site. The surrounding toe is still being held. She does not have any significant ecchymosis suggesting that her bleeding was superficial skin..] Objective Temp Pulse Resp BP Pulse Ox 98.5 F 82 14 126/59 97 09/24/18 11:33 09/24/18 11:33 09/24/18 11:33 09/24/18 11:33 09/24/18 11:33 - Additional Data Intake & Output - Last 24 hours: Intake & Output 09/22/18 09/23/18 09/24/18 09/25/18 05:59 05:59 05:59 05:59 Intake Total 2700 / 2700 2135 / 2135 2632 / 2632 1320 / 1320 Output Total 1775 / 1775 750 / 750 600 / 600 Balance 925 / 925 1385 / 1385 2032 / 2032 1320 / 1320 Weight 99 lb 101 lb 101 lb - General physical appearance well developed, no distress, chronically ill - Eyes PERRL, normal ocular movement - ENT normal pinna, normal nares, normal mucosa, no congestion, decreased hearing, deviated nasal septum - Neck no masses, no bruits, trachea midline, no lymphadenopathy, no venous distension - Respiratory normal expansion, normal respiratory effort, clear to auscultation - Cardiovascular Cardiovascular exam: Present: normal rate and rhythm, RRR, +S1, +S2. Absent: JVD, tachycardia - Abdomen tender (minimal tenderness around the operative site right groin), bowel sounds (present), surgical scars (none), masses (none) - Integumentary no rash, no growths, no abnormal pigmentation - Neurologic normal coordination, normal sensation - Musculoskeletal normal gait, normal posture - Psychiatric oriented to time, oriented to person, oriented to place, speech is normal, memory intact - Labs 09/24/18 04:30 09/24/18 04:30 Diabetes panel 09/24/18 Range/Units 04:30 Sodium 135 (133-145) mmol/L Potassium 3.3 (3.3-5.1) mmol/L Chloride 103 (96-108) mmol/L Carbon Dioxide 19 L (22-30) mmol/L BUN 23 (8-23) mg/dl Creatinine 0.7 (0.6-1.1) mg/dl Glucose 87 (70-105) mg/dL Calcium 8.3 L (8.6-10.4) mg/dl AST 89 H (0-37) U/l ALT 26 (0-40) U/l Alkaline Phosphatase 42 (39-117) U/L Total Protein 5.9 (5.9-8.4) gm/dL Albumin 2.8 L (3.2-5.2) gm/dL Triglycerides 84 (<150) mg/dl Calcium panel 09/24/18 Range/Units 04:30 Calcium 8.3 L (8.6-10.4) mg/dl Phosphorus 1.7 L (2.7-4.5) mg/dL Albumin 2.8 L (3.2-5.2) gm/dL Pituitary panel 09/24/18 Range/Units 04:30 Sodium 135 (133-145) mmol/L Potassium 3.3 (3.3-5.1) mmol/L Chloride 103 (96-108) mmol/L Carbon Dioxide 19 L (22-30) mmol/L BUN 23 (8-23) mg/dl Creatinine 0.7 (0.6-1.1) mg/dl Glucose 87 (70-105) mg/dL Calcium 8.3 L (8.6-10.4) mg/dl Adrenal panel 09/24/18 Range/Units 04:30 Sodium 135 (133-145) mmol/L Potassium 3.3 (3.3-5.1) mmol/L Chloride 103 (96-108) mmol/L Carbon Dioxide 19 L (22-30) mmol/L BUN 23 (8-23) mg/dl Creatinine 0.7 (0.6-1.1) mg/dl Glucose 87 (70-105) mg/dL Calcium 8.3 L (8.6-10.4) mg/dl Total Bilirubin 0.4 (0.0-1.0) mg/dL AST 89 H (0-37) U/l ALT 26 (0-40) U/l Alkaline Phosphatase 42 (39-117) U/L Total Protein 5.9 (5.9-8.4) gm/dL Albumin 2.8 L (3.2-5.2) gm/dL Assessment and Plan (1) Irreducible right femoral hernia Status: Resolved Assessment and plan: Patient is stable except for postoperative bleeding related to anticoagulant therapy Current Visit: Yes (2) Chronic atrial fibrillation Status: Chronic Current Visit: Yes (3) Chronic obstructive lung disease Status: Chronic Current Visit: Yes (4) Chronic kidney disease (CKD) Status: Acute Current Visit: Yes (5) History of coronary artery disease Status: Acute Current Visit: Yes (6) Small bowel obstruction Status: Resolved Current Visit: Yes - Time Spent With Patient Total time spent is greater than 50% in coordination of care (as documented) at patient's floor/unit and/or counseling patient:
[2018-09-24] MEDS: oxyCODONE/APAP 5/325MG TABLET PO PRN (19:35)
[2018-09-24] MEDS: amLODIPine 5 MG TABLET PO SCH (21:49)
[2018-09-25] MEDS: METOCLOPRAMIDE 10 MG/2 ML VIAL IV SCH ×3 (00:14→09:20)
[2018-09-25] MEDS: oxyCODONE/APAP 5/325MG TABLET PO PRN ×2 (01:35→07:25)
[2018-09-25] MEDS: cefOXitin 2 GM VIAL IV SCH ×2 (05:42→09:19)
[2018-09-25 06:14] LABS: Basophils # (Auto) 0 K/mcL (0.0-0.3); Basophils % (Auto) 0.2 % (0.0-2.0); Eosinophils # (Auto) 0.1 K/mcL (0.0-0.7); Eosinophils % (Auto) 1.1 % (0.0-7.0); Granulocytes % (Auto) 75.1 % (38.0-78.0); Lymphocytes # (Auto) 1.4 K/mcL (1.5-4.8); Lymphocytes % (Auto) 15.5 % (15.5-49.0); Mean Cell Volume 99.6 fL (80.0-100.0); Mean Corpuscular HGB Conc 33.3 g/dL (31.0-36.0); Monocytes # (Auto) 0.7 K/mcL (0.1-0.9); Monocytes % (Auto) 8.1 % (1.0-12.0); Platelet Count 334 K/mcL (140-440); RBC 3.02 M/mcL (4.00-5.20); Red Cell Distribution Width 14.5 % (11.5-14.5)
[2018-09-25 06:19] LABS: ALT/SGPT 33 U/l (0-40); Albumin/Globulin Ratio 0.9 (1.0-2.3); Alkaline Phosphatase 68 U/L (39-117); Bilirubin,Direct < 0.2 mg/dL (0.0-0.3); Blood Urea Nitrogen 23 mg/dl (8-23); Gamma Glutamyl Transpeptidase 18 U/L (5-36); Uric Acid 4.4 mg/dL (2.5-8.0)
[2018-09-25] MEDS: LEVOTHYROXINE 88 MCG TABLET PO SCH (07:50)
[2018-09-25] MEDS ORDERED: CIPROFLOXACIN 500 MG TABLET PO SCH (09:00)
[2018-09-25] MEDS ORDERED: NEUTRA PHOS 1 PACKET PO SCH (09:00)
[2018-09-25] MEDS: BECLOMETHASONE DIPROPIONATE INH SCH (09:21)
--- NOTE | 2018-09-25 12:50 | Discharge Summary ---
Providers - Providers Patient information: Note initiated : 09/25/18 at 12:46 pm Service Date, if different from initiated Date: [] Patient: Kathy Galvan 87 y/o F admitted on 09/21/18 for "upset stomach". Chief Complaint: [] Date of admission: 09/21/18 Discharge date: 09/25/18 Attending physician: Donna Marsh Hospitalization Hospital course: 87-year-old female admitted on 21 September with an incarcerated femoral hernia and small bowel obstruction. She underwent femoral hernia repair with mesh on 21 September. She did very well. She was on XERALTO and had some minor bleeding in the postoperative period. She otherwise did well. The patient has severe peripheral vascular disease with lack of pulses from femoral down to toes. She has elevation pallor & independent rubor. she has major ischemic pain in her feet when her feet elevated. She has recovered from the operative procedure without difficulty. She is having regular bowel movements and is tolerating a regular diet. She has mental confusion which was present on admission and has been slightly elevated because insomnia probably exacerbated by pain. Patient is stable and is transferred to long term facility for rehabilitation. Discharge diagnosis: incarcerated femoral hernia Secondary discharge diagnosis: Small bowel obstruction Severe peripheral vascular disease with ischemic pain Chronic atrial fibrillation Chronic anticoagulant therapy Progressive degenerative dementia Reason for admission: small bowel obstruction Procedures: Femoral hernia repair with mesh Pertinent studies/significant findings: CT of abdomen and pelvis with contrast Complications: None Exam Temp Pulse Resp BP Pulse Ox 97.8 F 87 12 170/67 98 09/25/18 08:00 09/25/18 08:00 09/25/18 08:00 09/25/18 08:00 09/25/18 08:00 - General physical appearance well developed, well nourished, moderate distress, moderate pain, cachectic, chronically ill - Eyes PERRL, normal ocular movement - ENT normal pinna, normal nares, normal mucosa, no congestion, decreased hearing - Head Head exam IM: Present: atraumatic, normocephalic - Neck no masses, no bruits, trachea midline, no lymphadenopathy, no venous distension - Cardiovascular Cardiovascular exam IM: Present: normal rate and rhythm, irregular rhythm, +S1, +S2, tachycardia. Absent: JVD - Respiratory normal expansion, normal respiratory effort, clear to auscultation - Abdomen Abdomen: Present: soft, tender (operative site is healing uneventfully without ecchymosis or hematoma), bowel sounds Hernia: Present: none - Genitourinary Present: normal external genitalia - Integumentary Present: no rash, no growths, no abnormal pigmentation - Neurologic Present: normal coordination, normal sensation, disoriented, confused, memory loss - Musculoskeletal Present: other ( poor standing and ambulation balance) - Psychiatric Present: oriented to time, oriented to person, oriented to place, speech is normal, memory intact Discharge Plan - Patient/Caregiver Discharge Instructions Activity: as per physical therapy, increase activity as tolerated Diet: Regular Diet Prescriptions: oxyCODONE/APAP [Percocet 5-325 mg] 1 tab PO Q4HP PRN #60 tab PRN Reason: Pain Level 3-6 - Follow up Plan Follow up with: Williams Clark MD [Primary Care Provider] - Disposition: Xfer Inpatient Rehab Fac Prognosis: Fair Rehab Potential: Good I certify that the patient requires SNF services.: Yes Overall status at discharge: patient is progressing back to baseline Pending Studies Resuscitation Status Do Not Resuscitate Diet Regular Diet Start MonSep 24 1538 Amlodipine Besylate (Norvasc) 5 mg PO HS [facility] Last Admin: 09/24/18 21:49 Dose: 5 mg Documented by: Admin: 09/23/18 20:30 Dose: 5 mg Documented by: Admin: 09/22/18 20:54 Dose: 5 mg Documented by: Admin: 09/21/18 20:21 Dose: 5 mg Documented by: JOELLEN Ciprofloxacin (Cipro) 500 mg PO BID [facility] Last Admin: 09/25/18 10:37 Dose: 500 mg Documented by: [id number] Hydromorphone HCl (Dilaudid) 0.5 mg IV Q4-6HP PRN PRN Reason: PAIN LEVEL > 6 Last Admin: 09/24/18 14:23 Dose: 0.5 mg Documented by: [email or web address] Admin: 09/24/18 10:22 Dose: 0.5 mg Documented by: Admin: 09/24/18 00:26 Dose: 0.5 mg Documented by: [email or web address] Admin: 09/23/18 20:37 Dose: 0.5 mg Documented by: Admin: 09/23/18 15:30 Dose: 0.5 mg Documented by: Admin: 09/23/18 11:26 Dose: 0.5 mg Documented by: Admin: 09/23/18 06:36 Dose: 0.5 mg Documented by: Admin: 09/22/18 22:17 Dose: 0.5 mg Documented by: Admin: 09/22/18 15:56 Dose: 0.5 mg Documented by: Admin: 09/22/18 10:08 Dose: 0.5 mg Documented by: Admin: 09/22/18 05:54 Dose: 0.5 mg Documented by: Admin: 09/22/18 01:49 Dose: 0.5 mg Documented by: Admin: 09/21/18 20:43 Dose: 0.5 mg Documented by: Admin: 09/21/18 15:06 Dose: 0.5 mg Documented by: [email or web address] Levothyroxine Sodium (Synthroid) 88 mcg PO QAMAC [facility] Last Admin: 09/25/18 07:50 Dose: 88 mcg Documented by: Admin: 09/24/18 06:40 Dose: 88 mcg Documented by: Admin: 09/23/18 09:49 Dose: 88 mcg Documented by: Admin: 09/22/18 07:08 Dose: 88 mcg Documented by: MARIE Oxycodone/Acetaminophen (Percocet 5-325 Mg) 1 tab PO Q4HP PRN PRN Reason: PAIN LEVEL 3-6 Last Admin: 09/25/18 07:25 Dose: 1 tab Documented by: Admin: 09/25/18 01:35 Dose: 1 tab Documented by: Admin: 09/24/18 19:35 Dose: 1 tab Documented by: JOELLEN Beclomethasone Dipropionate [Qvar 40] Inhaler 2 dose INH BID [facility] Last Admin: 09/25/18 09:21 Dose: Not Given Documented by: Admin: 09/24/18 21:49 Dose: Not Given Documented by: Admin: 09/24/18 10:46 Dose: Not Given Documented by: Admin: 09/23/18 20:32 Dose: Not Given Documented by: Admin: 09/23/18 07:36 Dose: Not Given Documented by: Admin: 09/22/18 22:46 Dose: Not Given Documented by: Admin: 09/22/18 12:00 Dose: Not Given Documented by: Admin: 09/21/18 20:30 Dose: Not Given Documented by: JOELLEN Potassium/Phosphorus/Sodium (Neutra Phos) 2 packet PO BID [facility] Last Admin: 09/25/18 10:37 Dose: 2 packet Documented by: [email or web address] Shift Summary 09/25/18 04:44 Shift Summary by Celsa Garay. A&O x4 but is somewhat forgetful after receiving pain medication. 5mg PO Oxycodone for back, leg surgical site pain. Pain medication effective for pain relief. Up to BSC with 1 person assist and gait belt. IVs to R and L FA are SL. Mepilex to sacral wound. Surgical wound to lower right abdomen open to air and without drainage, swelling or redness. Bed alarm on/pull tab when in chair. Has not slept much tonight, up between bed and chair several times. Uses call light to make needs known. Initialized on 09/25/18 04:44 - END OF NOTE
--- NOTE | 2018-10-02 11:59 | Operative Note ---
DATE OF OPERATION: 09/21/2018 PREOPERATIVE DIAGNOSIS: Left femoral hernia. POSTOPERATIVE DIAGNOSIS: Incarcerated left femoral hernia with small-bowel obstruction. PROCEDURE: Left femoral hernia repair. SURGEON: Donna Marsh M.D. FINDINGS: Tightly incarcerated small bowel and omentum and a large left femoral hernia sac with viable bowel. DESCRIPTION OF PROCEDURE: Under general anesthesia, the lower abdomen and genitalia were prepped and draped in a sterile field. A standard curvilinear incision was made in the left inguinal area. The incision extended through the superficial fascia to the aponeurosis. While dissecting the aponeurosis, it was noted that the hernia exited in the femoral canal under the shelving border of the iliopubic tract. The aponeurosis was opened in the line of its fibers. Dissection was then carried down over the femoral canal. The opening in the femoral canal was enlarged, and the hernia sac was reduced. It was opened and was noted to contain some slightly blood-tinged fluid, incarcerated hemorrhagic omentum, and thickened, slightly hemorrhagic small bowel loop which became viable after observation for about 5 minutes. The bowel was pulled into the operative field and was felt to be totally viable. It was then gently pushed through the neck of the hernia sac. The hernia sac was closed with running 2-0 Monocryl. It was then pushed into the preperitoneal space. A mesh plug was fashioned and placed in the defect at the femoral canal. It was sutured circumferentially with interrupted 2-0 Prolene. An onlay patch was placed and sutured over the entire inguinal floor using running 0 Prolene. The lower margin started at the pubic tubercle, extended down along Dipesh's ligament to a point below the level of the femoral canal so as to make the femoral canal tighter. With the mesh in place, it was felt that there would be no potential for reherniation. Prior to placing the onlay patch, the round ligament was divided. The internal ring was totally closed with the onlay patch. Irrigation was carried out. The aponeurosis was closed with 2-0 Vicryl. Subcutaneous tissue was irrigated and closed with 2-0 Vicryl. Skin was closed with anabela. The patient tolerated the procedure well. Tegaderm dressing was placed. She was awakened, transferred to a bed, and taken to the postanesthetic care unit in stable, satisfactory condition. [email or web address] Job ID: [id number] Doc ID: [id number] Donna Marsh M.D.
== END 2018-09-25 15:10 | DRG 351 ==
LOC: ED 19:56 → MEDSUR 09-21 01:04
PROVIDERS: ADMIT Family Medicine Adult Medicine; ATTEND Family Medicine Adult Medicine